=== PATIENT | male | born 1965 | race Caucasian/White ===

== ENCOUNTER 2016-08-15 09:06 | Emergency (ER) | payer OTHER ==
[~2016-08-15] VITALS: Ht 185.4 cm; Wt 97.5 kg
[2016-08-15] MEDS ORDERED: KETOROLAC TROMETHAMINE 30 MG/ML INJ. IV ONE (09:30)
[2016-08-15] MEDS ORDERED: ONDANSETRON PF 4 MG/2 ML VIAL. IV ONE (09:30)
[2016-08-15] MEDS: fentaNYL PF VIAL 100 MCG/2 ML VIAL IV PRN ×2 (09:39→11:15)
--- NOTE | 2016-08-15 09:48 | PHYS DOC ---
Past Medical History Past Medical History: No Pertinent History Past Surgical History Left orchiopexy for undescended testicle Alcohol Use: Occasionally Drug Use: None Adult General Chief Complaint Chief Complaint: FLANK PAIN HPI HPI Patient is a 50 year old male who presents with for left flank pain that is colicky and severe associated with multiple episodes of nonbloody nonbilious emesis and chills that started this morning. States the pain sometimes radiates to left anterior abdomen. He denies chest pain, cough, measured fever, diarrhea , dysuria, rash. Does note some dark urine yesterday. No prior history of kidney stones. No trauma. Review of Systems Review of Systems Constitutional: Denies fever or chills [] Eyes: Denies change in visual acuity, redness, or eye pain [] HENT: Denies nasal congestion or sore throat [] Respiratory: Denies cough or shortness of breath [] Cardiovascular: No additional information not addressed in HPI [] GI: Denies bloody stools or diarrhea [] : Denies dysuria or hematuria [] Musculoskeletal: Denies joint pain [] Integument: Denies rash or skin lesions [] Neurologic: Denies headache, focal weakness or sensory changes [] Endocrine: Denies polyuria or polydipsia [] Current Medications Current Medications Current Medications Medications (Trade) Dose Ordered Sig/[facility] Start Time Stop Time Status Last Admin Dose Admin Fentanyl Citrate (Fentanyl 2ml Vial) 50 mcg PRN Q15MIN PRN 08/15/16 09:30 08/16/16 09:29 08/15/16 11:15 50 MCG Ketorolac Tromethamine (Toradol) 15 mg 1X ONCE 08/15/16 09:30 08/15/16 09:36 DC 08/15/16 09:41 15 MG Ondansetron HCl (Zofran) 4 mg 1X ONCE 08/15/16 09:30 08/15/16 09:36 DC 08/15/16 09:38 4 MG Sodium Chloride 1,000 ml @ 1,000 mls/hr 1X ONCE 08/15/16 10:00 08/15/16 10:59 DC 08/15/16 10:01 1,000 MLS/HR Allergies Allergies Allergies Coded Allergies Type Severity Reaction Last Updated Verified No Known Drug Allergies 08/15/16 No Physical Exam Physical Exam Constitutional: Well developed, well nourished, no acute distress, non-toxic appearance. [] HENT: Normocephalic, atraumatic, bilateral external ears normal, oropharynx moist, nose normal. [] Eyes: PERRLA, EOMI. [] Neck: Normal range of motion, supple. [] Cardiovascular:Heart rate regular rhythm [] Lungs & Thorax: Bilateral breath sounds clear to auscultation [] Abdomen: Bowel sounds normal, soft, no tenderness. [] Skin: Warm, dry, no erythema, no rash. [] Back: No tenderness. Minimal left CVA tenderness; no right CVA tenderness. [] Extremities: No tenderness, ROM intact, no edema. [] Neurologic: Alert and oriented X 3, normal motor function, normal sensory function, no focal deficits noted. [] Psychologic: Affect normal, judgement normal, mood normal. [] Current Patient Data Vital Signs Vital Signs Date Time Temp Pulse Resp B/P (MAP) Pulse Ox O2 Delivery O2 Flow Rate FiO2 08/15/16 11:15 54 15 129/78 (95) 99 Room Air 08/15/16 09:20 97.8 97.8 Lab Values Laboratory Tests Test 08/15/16 09:35 08/15/16 11:02 Sodium Level 144 mmol/L (136-145) Potassium Level 4.2 mmol/L (3.5-5.1) Chloride Level 107 mmol/L (98-107) Carbon Dioxide Level 26 mmol/L (21-32) Anion Gap 11 (6-14) Blood Urea Nitrogen 23 mg/dL (8-26) Creatinine 1.3 mg/dL (0.7-1.3) Estimated GFR (Cockcroft-Gault) 58.2 Glucose Level 143 mg/dL (70-99) H Calcium Level 9.2 mg/dL (8.5-10.1) Urine Collection Type Unknown Urine Color Brown Urine Clarity Turbid Urine pH 5.5 Urine Specific [place] 1.025 Urine Protein 100 mg/dL (NEG-TRACE) Urine Glucose (UA) Negative mg/dL (NEG) Urine Ketones (Stick) 40 mg/dL (NEG) Urine Blood Large (NEG) Urine Nitrite Negative (NEG) Urine Bilirubin Negative (NEG) Urine Urobilinogen Dipstick 0.2 mg/dL (0.2 mg/dL) Urine Leukocyte Esterase Small (NEG) Urine RBC Tntc /HPF (0-2) Urine WBC 5-10 /HPF (0-4) Urine Squamous Epithelial Cells Occ /LPF Urine Bacteria Many /HPF (0-FEW) Urine Mucus Marked /LPF Laboratory Tests 08/15/16 09:35 Radiology/Procedures Radiology/Procedures CT abdomen and pelvis without contrast IMPRESSION: 2 mm calculus in the mid left ureter with associated mild to moderate obstructive uropathy. A minute left intrarenal calculus is additionally noted. DICTATED and SIGNED BY: BILLIE WALLACE MD DATE: 08/15/16 1010 Course & Med Decision Making Course & Med Decision Making Pertinent Labs and Imaging studies reviewed. (See chart for details) Has hematuria, but laboratory evaluation is otherwise unremarkable. CT remarkable for kidney stone as above. His symptoms are resolved at this time and he is feeling better. He would like to go home. Discussed urine strainer and to follow-up with primary care doctor. Return precautions given. He understands and agrees with plan. Dragon Disclaimer Dragon Disclaimer This electronic medical record was generated, in whole or in part, using a voice recognition dictation system. Departure Departure Impression: Primary Impression: Ureteral colic Disposition: HOME, SELF-CARE Condition: STABLE Referrals: CHIP HOLLOWAY DO Patient Instructions: Kidney Stones, [id number] Additional Instructions: Take Zofran as needed for nausea. Take Tylenol or ibuprofen as needed for moderate pain. Take hydrocodone as needed for severe pain. Do not drink, drive or operate heavy machinery after taking hydrocodone as it may make you sleepy. Follow-up with urology clinic within one week. Please call for appointment. Return for any concerns. Scripts Ondansetron (ZOFRAN ODT) 4 Mg Tab.rapdis 1 TAB SL Q8HRS Y for NAUSEA, #10 TAB Prov: Lima JERRY MD 08/15/16 Hydrocodone Bit/Acetaminophen (HYDROCODONE-APAP 5-325 ) 1 Each Tablet 1-2 TAB PO PRN Q4-6HRS Y for PAIN, #10 TAB 0 Refills Prov: Lima JERRY MD 08/15/16 Lima JERRY MD August 15, 2016 09:48
[2016-08-15] MEDS ORDERED: IV NORMAL SALINE 1000ML BAG 1,000 ML IV ONE (10:00)
[2016-08-15 10:01] LABS: CALCIUM 9.2 mg/dL (8.5-10.1); CREATININE 1.3 mg/dL (0.7-1.3); GFR 58.2; POTASSIUM 4.2 mmol/L (3.5-5.1)
--- NOTE | 2016-08-15 10:19 | RAD ---
Indication left flank pain. Axial images of the abdomen and pelvis were obtained. Examination was tailored for the detection of renal and/or ureteral calculi. No IV or gastrointestinal contrast was administered. No prior imaging is available. The lung bases are clear. There is a small periumbilical hernia containing only fat and appearing uncomplicated. The liver and spleen appear unremarkable and the gallbladder appears grossly normal. There is a small hiatus hernia. No pancreatic abnormality is seen. The adrenal glands appear normal. There is a minute left renal calculus. No right renal calculi are seen. There is mild to moderate left hydronephrosis secondary to a 2 mm calculus in the mid left ureter opposite the L4 vertebral body. There is no right-sided hydronephrosis. The pelvis is unremarkable. IMPRESSION: 2 mm calculus in the mid left ureter with associated mild to moderate obstructive uropathy. A minute left intrarenal calculus is additionally noted. PQRS Compliance Statement: One or more of the following individualized dose reduction techniques were utilized for this examination: 1. Automated exposure control 2. Adjustment of the mA and/or kV according to patient size 3. Use of iterative reconstruction technique
[2016-08-15 11:23] LABS: GLUCOSE,URINE NEGATIVE (NEG); NITRITE,URINE NEGATIVE (NEG); PH,URINE 5.5; PROTEIN,URINE 100 mg/dL (NEG-TRACE); UROBILINOGEN,URINE 0.2 mg/dL (0.2 mg/dL)
[2016-08-15 11:56] LABS: BACTERIA,URINE MANY /HPF (0-FEW); BILIRUBIN,URINE NEGATIVE (NEG); RBC,URINE TNTC /HPF (0-2); SQUAMOUS EPITHELIAL CELL,UR OCC /LPF
[2016-08-15 12:00] VITALS: BP 135/67
[2016-08-15] MEDS ORDERED: ONDA4TAB10 SL (12:16)
[2016-08-15] MEDS ORDERED: HYDR-2666 PO (12:16)
== END 2016-08-15 12:22 | disposition home or self-care (01) ==
LOC: ER 09:06
DX: N23 Unspecified renal colic (principal); R31.9 Hematuria, unspecified; R11.10 Vomiting, unspecified; R68.83 Chills (without fever); R10.9 Unspecified abdominal pain
CPT/HCPCS: 36415; 74176; 80048; 81001; 87086; 96361; 96374; 96375; 96376; 99285; J1885; J2405; J3010; J7030